=== PATIENT | female | born 1970 | race Caucasian/White ===

== ENCOUNTER 2023-11-18 22:46 | Emergency (ER) | payer OTHER, SELFPAY ==
--- NOTE | ~2023-11-18 | XR_ITS ---
EXAMINATION: XR NASAL BONES CLINICAL INFORMATION: Injury COMPARISON: None available. TECHNIQUE: 3 views of the nasal bones were obtained. FINDINGS: There is cortical irregularity of the nasal bone is suspected to reflect fracture with mild displacement. Included paranasal sinuses and mastoid air cells appear aerated. XR/XR nasal bones min 3V IMPRESSION: Mildly displaced nasal bone fracture. Electronically signed by: Chato Waggoner MD 11/19/2023 01:10 AM EDT RP
[2023-11-18 22:51] VITALS: BP 147/91; PULSE 94; RESP 20; TEMP 36.8; O2SAT 96; BMI 26.6
[2023-11-19 01:48] VITALS: BP 151/90; PULSE 77; RESP 18; TEMP 36.7; O2SAT 97
--- NOTE | 2023-11-19 06:17 | ED_ITS ---
HPI - General Adult General Chief complaint: Wound/Laceration Stated complaint: Nose Laceration/Fall Time Seen by Provider: 11/19/23 06:04 Source: patient Mode of arrival: ambulatory Limitations: no limitations History of Present Illness ED Provider: Dr. Sue Kerr HPI narrative: Patient comes to the emergency room complaining of a blunt trauma to the face. Patient states that her nose hurts quite a bit. Earlier today patient was moving furniture around, patient slipped and face falling on the floor. Patient complaining of epistaxis and nose pain. Denies hitting the rest of the head or losing consciousness. Related Data Previous Rx's ?Medication ?Instructions ?Recorded acetaminophen 500 mg tablet 500 mg PO Q6H PRN fever or pain 11/19/23 #14 tabs amoxicillin 500 mg-potassium 1 tab PO BID #10 tabs 11/19/23 clavulanate 125 mg tablet (Augmentin) ibuprofen 600 mg tablet 600 mg PO TID PRN fever or pain 11/19/23 #14 tabs Allergies Allergy/AdvReac Type Severity Reaction Status Date / Time No Known Allergies Allergy Verified 11/18/23 22:55 Review of Systems Review of Systems: Constitutional : No Weight loss, No Fever, No Chills, No Night Sweats, No Fatigue, No Malaise ENT/Mouth : Complaining of nose pain and epistaxis. No Hearing loss, No Ear Pain, No Nasal Congestion, No Sinus Pain, No Hoarseness, No sore throat, No Rhinorrhea, No Swallowing Difficulty Eyes: No Eye Pain, No Swelling, No Redness, No Foreign Body, No Discharge, No Vision Changes Cardiovascular : No Chest Pain, No SOB, No Dyspnea on Exertion, No Orthopnea, No Edema, No Palpitations Respiratory : No Cough, No Sputum, No Wheezing, No Smoke Exposure, No Dyspnea Gastrointestinal : No Nausea, No Vomiting, No Diarrhea, No Constipation, No abdominal Pain, No Hematochezia, No Melena Genitourinary : no irregular bleeding, No Dysuria, No Urinary Frequency, No Hematuria, No Urinary Incontinence, No Urgency, No Flank Pain, No Urinary Flow Changes, No Hesitancy Musculoskeletal : No joint pain, No Myalgias, No Joint Swelling Skin : No Skin Lesions, No rash Neuro : No Weakness, No Numbness, No Paresthesias, No Loss of Consciousness, No Dizziness, No Headache Psych : No Anxiety/Panic, No Depression, No SI/HI/AH/VH, No Social Issues, Heme/Lymph: No Bruising, No Bleeding,No Lymphadenopathy Endocrine : No Polyuria, No Polydipsia, No Temperature Intolerance [facility] Social History Social History Advance Directives: No Advance Directives Information Provided: Yes Physical Exam ED Vital Signs: Vital Signs - 24 hr 11/18/23 22:51 11/19/23 01:48 Temperature 98.2 F 98.0 F Pulse Rate 94 77 Respiratory Rate 20 18 Blood Pressure 147/91 H 151/90 H Pulse Oximetry 96 97 Oxygen Delivery Method Room Air Room Air BMI result Body Mass Index 26.6 Const Other: Appearance: Alert. Oriented X3. No acute distress. Eyes: Pupils equal, round and reactive to light. ENT: Pharynx normal. Bridge of nose has a small laceration, superficial, no stitches needed. Nose swollen. Mild epistaxis on the right nostril. No septal hematoma Neck: Normal inspection. Neck supple. No lymph nodes noted. No crepitus CVS: Normal heart rate and rhythm. Pulses normal. Normal S1 and S2 Respiratory: No respiratory distress. Breath sounds normal. No Wheezing. No rales Abdomen: Soft and nontender. No rigidity. No distention. Skin: Skin warm and dry. Normal skin color. Normal skin turgor. Extremities: No lower extremity edema. No Lacerations. No Rash Neuro: Oriented X 3. No motor deficit. No sensory deficit. Moving all extremities. No slurred speech. CN 2 through 12 grossly intact Psych: calm, cooperative, normal affect Medical Decision Making Medical Decision Making MDM Narrative: My interpretation of x-rays of facial bones: Mild displaced nasal fracture. -for pain control patient receiving IM Toradol, also receiving Augmentin. Afrin for the right nostril to control epistaxis, superficial laceration the nose was glued Differential Diagnosis Differential Diagnoses: The differential diagnosis associated with the presentation includes (Nasal fracture, contusion) Independent Interpretation I performed an independent interpretation of an: Plain X-Ray Radiology Impression Discussion of test interpretation with radiology: I have reviewed the rad iologist's reading. Radiologist Impression: There is cortical irregularity of the nasal bone is suspected to reflect fracture with mild displacement. Included paranasal sinuses and mastoid air cells appear aerated. XR/XR nasal bones min 3V IMPRESSION: Mildly displaced nasal bone fracture. Discharge Plan Discharge Clinical Impression: Fracture of nasal bone, Epistaxis Patient Disposition: Home, Self-Care Instructions: Nasal Fracture (ED) Additional Instructions: Please follow-up with your primary care physician tomorrow. If you have any worsening or new symptoms, please return to the emergency room or call 911 Prescriptions: New amoxicillin-pot clavulanate [Augmentin] 500-125 mg tablet 1 tab PO BID Qty: 10 0RF ibuprofen 600 mg tablet 600 mg PO TID PRN (Reason: fever or pain) Qty: 14 0RF acetaminophen 500 mg tablet 500 mg PO Q6H PRN (Reason: fever or pain) Qty: 14 0RF Stand Alone Forms: Work/School Release Print Language: Syriac
[2023-11-19] MEDS: Amoxicillin/Potassium Clav 875 MG TABLET PO (06:29)
[2023-11-19] MEDS: Oxymetazoline HCl 0.05 % Nasal 15 ML SPRAY 2 SPRAY NOSTRIL-B (06:29)
[2023-11-19] MEDS: Ketorolac Tromethamine 60 MG/2 ML VIAL IM (06:29)
[2023-11-19 06:41] VITALS: BP 161/70; PULSE 74; RESP 20; TEMP 36.2; O2SAT 94
[2023-11-19 06:45] VITALS: BP 161/70; PULSE 74; RESP 20; TEMP 36.2; O2SAT 94
== END 2023-11-19 06:46 | disposition home or self-care (01) ==
PROVIDERS: Emergency Provider Emergency Medicine
DX: R04.0 Epistaxis (principal); S02.2XXA Fracture of nasal bones, initial encounter for closed fracture; W01.198A Fall on same level from slipping, tripping and stumbling with subsequent striking against other object, initial encounter; Y93.E9 Activity, other interior property and clothing maintenance; Y92.019 Unspecified place in single-family (private) house as the place of occurrence of the external cause; Y99.9 Unspecified external cause status
CPT/HCPCS: 70160; 96372; 99283; 99284; J1885

== ENCOUNTER 2023-11-29 16:24 | Emergency (ER) | payer OTHER, BC, SELFPAY ==
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
[2023-11-29 16:30] VITALS: BP 155/114; BP 159/78; PULSE 78; PULSE 80; RESP 18; TEMP 36.4; O2SAT 100; O2SAT 98; BMI 26.9
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
[2023-11-29] MEDS: Acetaminophen 325 MG TABLET 975 MG PO (18:49)
[2023-11-29 19:17] VITALS: BP 155/85; PULSE 74; RESP 18; TEMP 36.7; O2SAT 100
== END 2023-11-29 19:18 | disposition home or self-care (01) ==
PROVIDERS: Emergency Provider Emergency Medicine Emergency Medical Services
DX: S13.4XXA Sprain of ligaments of cervical spine, initial encounter (principal); S09.90XA Unspecified injury of head, initial encounter; M54.2 Cervicalgia; R51.9 Headache, unspecified; V43.52XA Car driver injured in collision with other type car in traffic accident, initial encounter; Y93.89 Activity, other specified; Y92.488 Other paved roadways as the place of occurrence of the external cause; Y99.8 Other external cause status
CPT/HCPCS: 70450; 72125; 99283; 99284